=== PATIENT | male | born 1990 | race Caucasian/White ===

== ENCOUNTER 2022-01-16 08:31 | Outpatient (CLI) | payer OTHER, SELFPAY ==
[2022-01-16 12:35] LABS: Cholesterol* 176 mg/dL (90-199)
[2022-01-16 12:36] LABS: HDL Cholesterol* 37 mg/dL (>=40); LDL Cholesterol Calculated 121 mg/dL (<100); Triglycerides* 90 mg/dL (40-149)
== END 2022-01-16 08:32 | disposition home or self-care (01) ==
PROVIDERS: PCP Family Medicine; Visit Provider Family Medicine
DX: I10 Essential (primary) hypertension (principal); L02.91 Cutaneous abscess, unspecified
CPT/HCPCS: 80061